=== PATIENT | female | born 1955 | race Asian ===

== ENCOUNTER 2018-12-10 11:45 | Outpatient (RCR) | payer OTHER ==
[~2018-12-10 11:45] MED LIST: CALCIUM 600/VIT1 TAB PO; CELEBREX 1100 MG/CAP PO; GLUCOPHAGE1000 MG PO; IRON TABLETS325 MG PO; LANTUS100 U/ML SC; LEVAQUIN 5500 MG/TA1 PO; PRILOSEC 20MG20 MG PO; REFRESH 1 ML1 ML OP; TYLENOL 500MG500 MG; VITAMIN C500 MG PO; ZESTRIL 10MG10 MG PO; ZOCOR 40MG40 MG PO
== END 2019-02-20 15:07 | disposition home or self-care (01) ==
LOC: MKS.ESL.PT 11:45
DX: I89.0 Lymphedema, not elsewhere classified (principal)